=== PATIENT | male | born 2000 | race Hispanic/Latino ===

== ENCOUNTER 2024-06-15 19:30 | Emergency (ER) | payer SELFPAY ==
[~2024-06-15] VITALS: Ht 177.8 cm; Wt 142.9 kg
[2024-06-15 19:30] VITALS: TEMP 98.3
[2024-06-15 20:02] LABS: BASOPHILS # (AUTO) 0.1 (0.0-0.1); BASOPHILS % 0.7 % (0.0-1.0); EOSINOPHILS # (AUTO) 0.1 (0.0-0.4); EOSINOPHILS % 0.9 % (0.0-6.0); HEMATOCRIT 51.5 % (38.2-49.6); HEMOGLOBIN 16.3 g/dL (14.0-18.0); LYMPHOCYTES # (AUTO) 2.9 (1.0-3.2); LYMPHOCYTES % 27.3 % (18.0-39.1); MEAN CORPUSCULAR HEMOGLOBIN 27.2 pg (28-32); MEAN CORPUSCULAR HGB CONC 31.7 g/dL (31-35); MONOCYTES # (AUTO) 0.5 (0.2-0.8); MONOCYTES % 4.5 % (4.4-11.3); NEUTROPHILS # (AUTO) 7.1 (2.1-6.9); NEUTROPHILS % 66.3 % (38.7-80.0); PLATELET COUNT 217 x10e3/uL (140-360); RED BLOOD COUNT 5.99 x10e6/uL (4.3-5.7); WHITE BLOOD COUNT 10.74 x10e3/uL (4.8-10.8)
[2024-06-15 20:23] LABS: ALBUMIN 4.4 g/dL (3.5-5.0); ALBUMIN/GLOBULIN RATIO 1.2 (0.8-2.0); ANION GAP 19.6 mmol/L (8-16); BILIRUBIN,TOTAL 0.6 mg/dL (0.2-1.2); CALCIUM 10.6 mg/dL (8.4-10.2); CREATININE, SERUM 1.22 mg/dL (0.72-1.25); POTASSIUM 4.6 mmol/L (3.5-5.1); TOTAL PROTEIN 8.2 g/dL (6.5-8.1)
[2024-06-15] MEDS: SODIUM CHLORIDE 0.9% 1000ML 1,000 ML IV STA ×2 (20:43)
[2024-06-15] MEDS: KETOROLAC TROMETHAMINE 30 MG/ML VIAL IV STA (20:44)
[2024-06-15 21:28] VITALS: PULSE 95; RESP 16
[2024-06-15 21:28] LABS: BILIRUBIN,URINE NEGATIVE (NEGATIVE); CLARITY,URINE CLEAR (CLEAR); COLOR,URINE YELLOW (YELLOW); GLUCOSE, URINE 500 (NEGATIVE); KETONES,URINE 1+ (NEGATIVE); LEUKOCYTE ESTERASE ,URINE NEGATIVE (NEGATIVE); NITRITE,URINE NEGATIVE (NEGATIVE); PH,URINE 5.5 (5 - 7); PROTEIN,URINE DIPSTICK NEGATIVE (NEGATIVE); URINE UROBILINOGEN 1 mg/dL (0.2 - 1)
[2024-06-15 21:31] LABS: RBC,URINE 0-5 /HPF (0-5); WBC,URINE (MAN) 0-5 /HPF (0-5)
[2024-06-15 21:32] LABS: EPITHELIAL CELLS,URINE RARE /LPF
[2024-06-15] MEDS ORDERED: KETOROLAC TROME10 MG PO (21:32)
[2024-06-15] MEDS ORDERED: ULTRAM 50MG50 MG PO (21:32)
[2024-06-15] MEDS ORDERED: METFORMIN HCL500 MG PO (21:32)
[2024-06-15] MEDS: INSULIN REGULAR, HUMAN 100 UNIT/1 ML IV STA (21:53)
[2024-06-15 22:03] VITALS: BP 141/99; PULSE 97; RESP 16; O2SAT 99
== END 2024-06-15 22:00 | disposition home or self-care (01) ==
LOC: ER 19:36
DX: M54.42 Lumbago with sciatica, left side (principal); E11.65 Type 2 diabetes mellitus with hyperglycemia; K76.0 Fatty (change of) liver, not elsewhere classified
CPT/HCPCS: 36415; 74176; 80053; 81001; 82948; 83036; 83690; 85025; 99284; J1885; J7030